=== PATIENT | male | born 1950 | race Caucasian/White ===

== ENCOUNTER → 2023-11-10 14:30 | Outpatient (REF) | payer MEDICARE, BC, SELFPAY | LOC: HWRAD 14:30 | PROVIDERS: ATTENDING PHYSICIAN Physician Assistant; FAMILY PHYSICIAN Internal Medicine | DX: C07 Malignant neoplasm of parotid gland (principal); I65.29 Occlusion and stenosis of unspecified carotid artery; Z92.3 Personal history of irradiation; Y84.2 Radiological procedure and radiotherapy as the cause of abnormal reaction of the patient, or of later complication, without mention of misadventure at the time of the procedure; I65.23 Occlusion and stenosis of bilateral carotid arteries | CPT/HCPCS: 93880 ==